=== PATIENT | male | born 1955 | race Caucasian/White ===

== ENCOUNTER → 2019-05-09 15:44 | Outpatient (BNVA) | payer MEDICARE, MEDICAID, SELFPAY | PROVIDERS: Family Provider Internal Medicine; PCP Internal Medicine; Visit Provider Nurse Practitioner Psychiatric/Mental Health | DX: F41.1 Generalized anxiety disorder (principal) | CPT/HCPCS: 99214; 99215 ==

== ENCOUNTER 2020-03-15 12:48 | Outpatient (CLI) | payer MEDICARE, MEDICAID, SELFPAY ==
--- NOTE | 2020-03-15 13:00 | CT_ITS ---
WS: [id number] CTA THORACIC TECHNIQUE: Contrast enhanced CTA of the thoracic aorta with coronal and sagittal reformatted images a nd maximum intensity projection (MIP) images. CLINICAL INFORMATION: I71.2 - Thoracic aortic aneurysm, without rupture COMPARISON: 018, 2 ,017, and September 04, 2014 DLP: 1550.[address] scans at [facility] use at least one of these dose optimization techniques: automat ed exposure control; mA and/or kV adjustment per patient size (includes targeted exams where dose is matched to clinical indication); or iterative reconstruction. FINDINGS: Again seen is the 4.4 cm ascending thoracic aortic aneurysm unchanged from previous. In addition this is unchanged from 2015. Normal descending thoracic aorta. Upper abdominal aorta is normal. Normal ca liber proximal main pulmonary arteries. No mediastinal or hilar lymphadenopathy. No axillary lymphade nopathy. Small esophageal hiatal hernia. Adrenal glands are normal. Normal renal parenchymal enhancement parti ally visualized. Previously described left lower pole renal lesion partially visualized today but lars ears stable. Mild chronic emphysematous changes. No acute pulmonary infiltrates. CT/CT angio chest 14137 IMPRESSION: 1. Stable ascending thoracic aortic aneurysm measuring 4.4 CCM. 2. No mediastinal or hilar lymphadenopathy. No axillary lymphadenopathy. 3. Small esophageal hiatal hernia. 4. No acute pulmonary infiltrates. Lungs well aerated. 5. Left lower pole renal lesion appears stable compared to previous.
[2020-03-15 13:45] LABS: Blood Urea Nitrogen 15 mg/dL (8-23); Glomerular Filtration Rate 67.8 mL/min (90-130)
[2020-03-15] MEDS: iohexol 350 mg/mL 100 mL Btl IV (13:56)
== END 2020-03-15 12:49 | disposition home or self-care (01) ==
PROVIDERS: PCP Physician Assistant; Visit Provider Internal Medicine Cardiovascular Disease
DX: I71.2 Thoracic aortic aneurysm, without rupture (principal); I71.6 Thoracoabdominal aortic aneurysm, without rupture; K44.9 Diaphragmatic hernia without obstruction or gangrene; N28.9 Disorder of kidney and ureter, unspecified
CPT/HCPCS: 71275; 82565; 84520; Q9967

== ENCOUNTER → 2020-12-14 13:18 | Outpatient (BNVA) | payer MEDICARE, MEDICAID, SELFPAY | PROVIDERS: PCP Physician Assistant; Visit Provider Psychiatry & Neurology Psychiatry | DX: F41.1 Generalized anxiety disorder (principal) | CPT/HCPCS: 99204 ==

== ENCOUNTER → 2021-08-19 14:07 | Outpatient (BNVA) | payer MEDICARE, SELFPAY | PROVIDERS: PCP Physician Assistant; Visit Provider Internal Medicine Cardiovascular Disease | DX: Z01.810 Encounter for preprocedural cardiovascular examination (principal); I25.118 Atherosclerotic heart disease of native coronary artery with other forms of angina pectoris; I44.0 Atrioventricular block, first degree; I71.6 Thoracoabdominal aortic aneurysm, without rupture; E78.5 Hyperlipidemia, unspecified; K21.9 Gastro-esophageal reflux disease without esophagitis; F17.210 Nicotine dependence, cigarettes, uncomplicated | CPT/HCPCS: 93005; 99214; 99215 ==

== ENCOUNTER 2022-05-09 10:02 | Outpatient (CLI) | payer MEDICARE, SELFPAY ==
--- NOTE | 2022-05-09 10:30 | CT_ITS ---
WS: [id number] CTA CHEST WITH CT ABDOMEN. HISTORY: Follow-up thoracic aneurysm and renal lesion. TECHNIQUE: CT angiogram is performed through the chest. Additional imaging is performed through the a bdomen with IV contrast. Sagittal and coronal reformats have been submitted. MIP imaging also review ed. All CT scans at [facility] use at least one of these dose optimization techniques: automat ed exposure control; mA and/or kV adjustment per patient size (includes targeted exams where dose is matched to clinical indication); or iterative reconstruction. Contrast: Omnipaque 350; 95 cc IV. DLP: 1195.77 mGy.cm COMPARISON: 03/15/2020 and 06/09/2016 Chest CTA: Good opacification of the thoracic aorta. Maximum diameter 4.6 cm of the ascending aorta. Mild atherosclerotic plaque. Aorta returns to normal diameter through the arch and the descending aor ta. There is a small amount of calcified plaque and intimal thickening. No dissection. There is no si gnificant change in appearance of the aorta are size since the prior study and through 2014. Normal s ize pulmonary artery. No filling defects within the pulmonary artery. Cardiac chambers are mildly enlarged. No pericardial or pleural effusions. Scattered coronary artery calcifications. No pulmonary mass or nodule. No pericardial or pleural effusions. Small hiatal hernia . No adenopathy. Abdomen CT: Normal appearance of the liver, spleen and pancreas. No adrenal mass. Normal gallbladder. Mild atherosclerosis aorta with no aneurysm. Exophytic 13 mm low-attenuation mass in the lower pole LEFT kidney is unchanged since at least 017. No solid mass within either kidney. No ascites or adenopathy. Visualized GI tract is negative. CT/CT angio chest abdomen IMPRESSION: 1. Stable very minimal aneurysmal dilatation ascending thoracic aorta at 4.6 c m. No significant increase in size. Stable since 09/04/2014. 2. No aortic dissection. 3. Long-term stability 13 mm low-attenuation mass LEFT kidney. 4. Mild atherosclerosis aorta and mesenteric arteries. 5. Small hiatal hernia.
[2022-05-09 11:23] LABS: Blood Urea Nitrogen 9 mg/dL (8-23)
[2022-05-09] MEDS: iohexol 350 mg/mL 500 mL Btl (per mL) IV (14:51)
== END 2022-05-09 10:03 | disposition home or self-care (01) ==
LOC: RAD 10:07
PROVIDERS: PCP Physician Assistant; Visit Provider Physician Assistant
DX: I71.22 Aneurysm of the aortic arch, without rupture (principal); K44.9 Diaphragmatic hernia without obstruction or gangrene; I70.0 Atherosclerosis of aorta; N28.89 Other specified disorders of kidney and ureter
CPT/HCPCS: 71275; 74175; 82565; 84520; Q9967

== ENCOUNTER 2022-07-07 13:11 | Outpatient (CLI) | payer MEDICARE, SELFPAY ==
--- NOTE | 2022-07-07 13:27 | CT_ITS ---
WS: [id number] CT ANGIOGRAM CEREBRAL AND CAROTID ARTERIES HISTORY: AMAUROSIS FUGAX TECHNIQUE: CT angiogram is performed of the carotid and cerebral arteries. During arterial injection imaging is obtained from the skull vertex to the aortic arch in 1.25 mm imaging. Coronal and sagittal reformats are submitted. Additional multi planar reformats of the carotid and cerebral arteries are submitted, MIP imaging also reviewed. NASCET criteria utilized. [facility] e at least one of these dose optimization techniques: automated exposure control; mA and/or kV adjust ment per patient size (includes targeted exams where dose is matched to clinical indication); or iter ative reconstruction. CONTRAST: Omnipaque 350; 100 mL IV. DLP: 608.13 mGy.cm COMPARISON: None available. Noncontrast head CT: Mild cerebral atrophy. No midline shift or mass effect. No infarcts. Carotid Angiogram: Right carotid: Common carotid artery: Arises normally from the innominate artery. No significant plaque or stenosis. Internal carotid artery: There is significant short segment stenosis involving the proximal ICA. Sten osis greater than 80%. Stenosis predominantly due to soft plaque. External carotid artery: Patent. Left carotid: Common carotid artery: Normally arises from the aorta. Small amount of plaque. Internal carotid artery: Motion artifact. Mild intimal thickening. Small amount of calcified plaque a t the bifurcation. There is very minimal luminal narrowing of much less than 50%. External carotid artery: Patent. Right vertebral artery: Small caliber. Mild intimal thickening and calcified plaque in the proximal R IGHT vertebral artery. No occlusion or high-grade stenosis. Left vertebral artery: Unremarkable. Arises normally from the subclavian artery. Subclavian arteries: Motion artifact. No abnormality identified. Upper thorax: Normal. Thyroid gland: Normal. Osseous structures: Unremarkable. CEREBRAL ANGIOGRAM: Intracranial vertebral arteries: Normal with no significant atherosclerosis. Basilar artery: No significant stenosis or occlusion. No aneurysm. Intracranial Internal carotid arteries: Mild plaque and intimal thickening. No high-grade stenosis. Middle cerebral arteries: Small caliber RIGHT MCA but it is patent. No aneurysms. Anterior cerebral arteries and ACOM: Normal. Posterior cerebral arteries and PCOM's: Normal posterior cerebral arteries. Posterior communicating a rteries are very small caliber and difficult to visualize. Dural venous sinuses are normally enhancing. Mastoid air cells: Normal. Paranasal sinuses: Normal. Calvarium: Normal. CT/CT angio headneck* [id number] IMPRESSION: 1. Proximal RIGHT ICA stenosis greater than 80%. Predominantly soft plaque. 2. No significant LEFT ICA stenosis, less than 50%. 3. Small caliber but patent RIGHT middle cerebral artery. No aneurysm. 4. Mild intracranial carotid atherosclerosis.
[2022-07-07] MEDS: iohexol 350 mg/mL 500 mL Btl (per mL) IV (13:55)
== END 2022-07-07 13:12 | disposition home or self-care (01) ==
PROVIDERS: PCP Physician Assistant; Visit Provider Physician Assistant
DX: G45.3 Amaurosis fugax (principal)
CPT/HCPCS: 70496; 70498; Q9967

== ENCOUNTER → 2023-08-13 13:58 | Outpatient (BNVA) | payer MEDICARE, SELFPAY | PROVIDERS: PCP Physician Assistant; Visit Provider Internal Medicine Cardiovascular Disease | DX: I25.118 Atherosclerotic heart disease of native coronary artery with other forms of angina pectoris (principal); E78.5 Hyperlipidemia, unspecified; Z98.61 Coronary angioplasty status; Z72.0 Tobacco use; I65.29 Occlusion and stenosis of unspecified carotid artery | CPT/HCPCS: 99214 ==